=== PATIENT | male | born 1940 | race Two or more races ===

== ENCOUNTER 2020-03-22 20:51 | Emergency (ER) | payer OTHER ==
[~2020-03-22] VITALS: Ht 172.7 cm; Wt 72.6 kg
[2020-03-23] MEDS ORDERED: ZITHROMAX500 MG PO (02:11)
== END 2020-03-23 02:17 | disposition home or self-care (01) ==
LOC: ER 20:51
DX: B34.9 Viral infection, unspecified (principal); R50.9 Fever, unspecified